=== PATIENT | male | born 1995 | race Caucasian/White ===

== ENCOUNTER 2018-06-07 22:29 | Emergency (ER) | payer SELFPAY ==
[2018-06-08] MEDS: ONDANSETRON (ODT) 4 MG TAB ODT (01:49)
[2018-06-08] MEDS: KETOROLAC 15 MG INJ IM (01:50)
== END 2018-06-08 03:35 | disposition home or self-care (01) ==
LOC: FTE 06-08 03:35
DX: R10.84 Generalized abdominal pain (principal); R11.2 Nausea with vomiting, unspecified
CPT/HCPCS: 96372; 99284-25